=== PATIENT | female | born 1940 | race Asian ===

== ENCOUNTER 2020-01-23 13:52 | Inpatient (IN) | payer OTHER ==
[~2020-01-23] VITALS: Ht 165.1 cm; Wt 58.1 kg
--- NOTE | 2020-01-23 13:55 | NUR ---
BIBRA FROM HOME FOR ALOC, WEAKNESS AND HIGH BLOOD SUGAR. TO ER BED 8, HOOKED TO TOPOGRAPHICAL DRAFTER, BP CUFF AND POX, CHANGED TO HOSP GOWN, WARM BLANKET PROVIDED, PATIENT AAO x 0, BREATHING EVEN AND UNLABORED, NAD NOTED. AWAITING MD DOW.
--- NOTE | 2020-01-23 14:10 | NUR ---
DR PRATHER AT BEDSIDE
[2020-01-23] MEDS ORDERED: CEFTRIAXONE 1GM BAG (ER ONLY) 50 ML IV ONE ×2 (14:21→14:30)
[2020-01-23 14:28] LABS: BASOPHILS # (AUTO) 0.1 /CMM (0.0-0.2); BASOPHILS % (AUTO) 1.1 % (0.0-2.0); EOSINOPHILS % (AUTO) 0.9 % (0.0-6.0); HEMATOCRIT 41 % (33-45); HEMOGLOBIN 13.8 g/dL (11.5-14.8); LYMPHOCYTES # (AUTO) 1.2 /CMM (0.8-4.8); LYMPHOCYTES % (AUTO) 15.9 % (20.0-44.0); MEAN CORPUSCULAR HGB CONC 34 g/dl (31.0-36.0); MEAN CORPUSCULAR VOLUME 98 fL (82-100); MONOCYTES # (AUTO) 0.3 /CMM (0.1-1.30); MONOCYTES % (AUTO) 4.1 % (2.0-12.0); PLATELET COUNT (AUTO) 261 /CMM (150-450); RED BLOOD CELL COUNT(AUTO) 4.14 MIL/uL (4.0-5.2); WHITE BLOOD COUNT (AUTO) 7.7 K/uL (4.3-11.0)
[2020-01-23] MEDS ORDERED: IV NS 0.9% 1,000 ML BAG IV ONE ×2 (14:30→18:00)
[2020-01-23 14:49] LABS: CALCIUM, SERUM 10.5 mg/dL (8.5-10.1); CARBON DIOXIDE 31 mmol/L (21-32); CHLORIDE 94 mmol/L (98-107); POTASSIUM 4.2 mmol/L (3.5-5.1); SODIUM SERUM 133 mmol/L (136-145)
[2020-01-23 14:50] LABS: ALANINE AMINOTRANSFERASE 20 U/L (12-78); ALBUMIN 3.5 g/dL (3.4-5.0); ALKALINE PHOSPHATASE 117 U/L (46-116); ASPARTATE AMINOTRANSFERASE 19 U/L (15-37); BILIRUBIN,DIRECT 0.2 mg/dL (0.0-0.2); BILIRUBIN,TOTAL 0.8 mg/dL (0.2-1.0); CREATININE 0.9 mg/dL (0.6-1.3); UREA NITROGEN, BLOOD 13 mg/dL (7-18)
[2020-01-23 14:53] LABS: GLUCOSE 573 mg/dL (74-106)
[2020-01-23] MEDS ORDERED: OMEP40CA13 PO (15:11)
[2020-01-23] MEDS ORDERED: EMPA10TA PO (15:11)
[2020-01-23] MEDS ORDERED: PRAV40TA3 PO (15:11)
[2020-01-23] MEDS ORDERED: ICOS1CAP PO (15:11)
[2020-01-23] MEDS ORDERED: METF-442 PO (15:11)
[2020-01-23] MEDS ORDERED: CHOL200010 PO (15:11)
[2020-01-23] MEDS ORDERED: ASPI-1420 PO (15:11)
[2020-01-23] MEDS ORDERED: SEMA3TAB PO (15:11)
[2020-01-23] MEDS ORDERED: AMYL1CAP58 PO (15:11)
[2020-01-23] MEDS ORDERED: OLME1TAB46 PO (15:11)
[2020-01-23] MEDS ORDERED: GABA300C PO (15:11)
[2020-01-23] MEDS ORDERED: FLUO20CA42 PO (15:11)
--- NOTE | 2020-01-23 15:19 | NUR ---
PICKED UP BY AUTOMOTIVE MAINTENANCE TECHNICIAN [facility]IA [facility] FOR CT SCAN.
[2020-01-23] MEDS ORDERED: INSULIN REGULAR, HUMAN 100 UNIT/ML 10 ML VIAL IV ONE (15:30)
[2020-01-23] MEDS ORDERED: INSULIN REGULAR, HUMAN 100 UNIT/ML 10 ML VIAL ONE (15:31)
--- NOTE | 2020-01-23 15:50 | NUR ---
URINE SAMPLE COLLECTED VIA STRAIGHT CATHETER, SAMPLE SENT TO LAB.
--- NOTE | 2020-01-23 15:54 | NUR ---
COVID 19 PCR SWAB DONE AND SENT TO LAB.
[2020-01-23] MEDS ORDERED: ACETAMINOPHEN 325 MG TABLET PO PRN (17:00)
[2020-01-23] MEDS ORDERED: MAGNESIUM HYDROXIDE 30 ML UDC PO PRN (17:00)
[2020-01-23] MEDS ORDERED: MAG HYDROX/AL HYDROX/SIMETH 30 ML UDC PO PRN (17:00)
[2020-01-23] MEDS ORDERED: Z GUARD REMEDY 2 OZ OINT TP PRN (17:00)
[2020-01-23] MEDS ORDERED: ONDANSETRON HCL/PF 4 MG/2 ML VIAL IVP PRN (17:00)
[2020-01-23] MEDS ORDERED: DEXTROSE 50%-WATER 50 ML DISP.SYRIN IV PRN (17:00)
[2020-01-23] MEDS ORDERED: CLONIDINE HCL 0.1 MG TABLET PO PRN (17:00)
[2020-01-23] MEDS ORDERED: HYDROCODONE/APAP 5/325MG TABLET PO PRN (17:00)
--- NOTE | 2020-01-23 17:20 | NUR ---
SENT 2ND URINE SAMPLE COLLECTED VIA STRAIGHT CATHETER
--- NOTE | 2020-01-23 17:36 | NUR ---
LAB CALLED LACTIC ACID 4.0 MD AWARE.
[2020-01-23 17:37] LABS: BILIRUBIN,URINE Negative (NEGATIVE); BLOOD, URINE Small Ery/uL (NEGATIVE); COLOR,URINE YELLOW (YELLOW); LEUKOCYTE ESTERASE ,URINE Negative (NEGATIVE); NITRITE, URINE Negative (NEGATIVE); PROTEIN,URINE >=300 mg/dl (NEGATIVE); UGLUCOSE >=1000 mg/dL (NEGATIVE); UROBILINOGEN,URINE 0.2 EU/dL (0.2)
--- NOTE | 2020-01-23 17:39 | NUR ---
MD MADE AWARE OF PATIENT'S BP. NO NEW ORDERS
[2020-01-23] MEDS: BLOOD SUGAR DIAGNOSTIC 1 EACH STRIP VI SCH ×2 (17:40→21:32)
[2020-01-23 17:51] LABS: BACTERIA,URINE Rare /HPF (None Seen); SQUAMOUS EPITHELIAL CELL,UR Few /HPF (None Seen); WBC,URINE NONE SEEN /HPF (0-3)
--- NOTE | 2020-01-23 17:55 | NUR ---
PATIENT CLEANED LINEN CHANGED. HOOKED TO MONITOR. WILL CONTINUE TO MONITOR ACCORDINGLY
[2020-01-23] MEDS: IV NS 0.9% 1,000 ML IV SCH (18:00)
--- NOTE | 2020-01-23 19:24 | NUR ---
ENDORSEMENT GIVEN TO FRANDY GARVEY FOR EKTA
[2020-01-23] MEDS: *INSULIN REGULAR(HUMULIN R)HUM 100 UNIT/ML VIAL SQ PRN (22:33)
[2020-01-23] MEDS ORDERED: CLONIDINE HCL 0.1 MG TABLET ONE (23:20)
--- NOTE | 2020-01-24 01:57 | NUR ---
REC'D NEG COVID RESULTS. AWARE
[2020-01-24] MEDS: IV NS 0.9% 1,000 ML IV SCH ×3 (03:30→23:25)
--- NOTE | 2020-01-24 04:02 | NUR ---
PT REMAINS ASLEEP, PROVIDED WITH PILLOW.
--- NOTE | 2020-01-24 05:55 | NUR ---
PATIENT CHANGED INTO CLEAN GOWN AND SHEETS. PATIENT GIVEN PERICARE.
[2020-01-24 05:59] LABS: BASOPHILS # (AUTO) 0.1 /CMM (0.0-0.2); BASOPHILS % (AUTO) 0.9 % (0.0-2.0); EOSINOPHILS % (AUTO) 1.3 % (0.0-6.0); HEMATOCRIT 34 % (33-45); LYMPHOCYTES # (AUTO) 2.6 /CMM (0.8-4.8); LYMPHOCYTES % (AUTO) 26.3 % (20.0-44.0); MEAN CORPUSCULAR HGB CONC 35 g/dl (31.0-36.0); MEAN CORPUSCULAR VOLUME 98 fL (82-100); MONOCYTES # (AUTO) 0.7 /CMM (0.1-1.30); MONOCYTES % (AUTO) 7.7 % (2.0-12.0); NEUTROPHILS # (AUTO) 6.2 /CMM (1.8-8.9); NEUTROPHILS % (AUTO) 63.8 % (43.0-81.0); PLATELET COUNT (AUTO) 243 /CMM (150-450); RED BLOOD CELL COUNT(AUTO) 3.51 MIL/uL (4.0-5.2); WHITE BLOOD COUNT (AUTO) 9.7 K/uL (4.3-11.0)
[2020-01-24 06:09] LABS: CALCIUM, SERUM 8.4 mg/dL (8.5-10.1); CREATININE 0.7 mg/dL (0.6-1.3); MAGNESIUM 1.5 mg/dL (1.8-2.4); PHOSPHORUS 3.2 mg/dL (2.5-4.9)
--- NOTE | 2020-01-24 07:36 | NUR ---
PATIENT IN BED ASLEEP. HOOKED TO MONITOR. VSS. WILL CONTINUE TO MONITOR ACCORDINGLY. KEPT WARM AND COMFORTABLE.
[2020-01-24] MEDS: BLOOD SUGAR DIAGNOSTIC 1 EACH STRIP VI SCH ×4 (08:02→22:26)
[2020-01-24] MEDS ORDERED: Magnesium 1GM/D5W 100ML PREMIX 100 ML IV SCH (08:30)
[2020-01-24] MEDS: GABAPENTIN 300 MG CAPSULE PO SCH (09:16)
[2020-01-24] MEDS: POTASSIUM CHLORIDE 20 MEQ TAB.PRT.SR PO SCH ×2 (09:16→11:36)
[2020-01-24] MEDS: ASPIRIN EC 81 MG TABLET.DR PO SCH (09:16)
[2020-01-24] MEDS: CHOLECALCIFEROL 1,000 UNIT TABLET (VIT D3) PO SCH (09:17)
[2020-01-24] MEDS: FLUOXETINE HCL 20 MG CAPSULE PO SCH (09:17)
[2020-01-24] MEDS: PANTOPRAZOLE 40 MG TABLET.DR PO SCH (09:17)
[2020-01-24] MEDS: LISINOPRIL (5MG) 5 MG TABLET PO SCH (09:18)
--- NOTE | 2020-01-24 09:38 | NUR ---
PATIENT SERVED BREAKFAST. TOLERATING PO WELL.
--- NOTE | 2020-01-24 10:06 | NUR ---
UPDATED MONGE SIMIN WITH PATIENT STATUS.
[2020-01-24] MEDS: INSULIN REGULAR, HUMAN 100 UNIT/ML 3 ML VIAL SQ PRN (12:59)
--- NOTE | 2020-01-24 13:21 | NUR ---
patient refused eating at lunch time. placed food tray at bedside
--- NOTE | 2020-01-24 15:21 | NUR ---
RAPID INFLUENZA SWAB DONE AND SENT TO LAB
[2020-01-24] MEDS: *INSULIN REGULAR(HUMULIN R)HUM 100 UNIT/ML VIAL SQ PRN (18:00)
--- NOTE | 2020-01-24 18:22 | NUR ---
PATIENT CLEANED, LINEN AND HOSP GOWN CHANGED.
--- NOTE | 2020-01-24 18:52 | NUR ---
patient eating dinner tray. tolerating food well
--- NOTE | 2020-01-24 19:30 | NUR ---
ENDORSEMENT GIVEN TO FRANDY GARVEY FOR EKTA
--- NOTE | 2020-01-24 22:23 | NUR ---
TELE [id number]
--- NOTE | 2020-01-24 22:38 | NUR ---
REPORT GIVEN TO MILEY GARVEY FOR EKTA.
--- NOTE | 2020-01-24 22:53 | NUR ---
PATIENT TAKEN UP TO ASSIGNED ROOM FOR EKTA.
--- NOTE | 2020-01-24 23:45 | NUR ---
TELE/RN OPENING NOTES PATIENT ARRIVED TO UNIT VIA GURNEY BY DUCT LAYER HELPER AND RN FRANDY. PATIENT SUSTAINED NO INJURIES DURING TRANSFER. PATIENT PLACED IN BED WITH NO INJURIES. PATIENT IS STABLE ON ROOM AIR. PATIENT IS ALERT AND ORIENTED X 1-2, [place] SPEAKING. NO SIGNS OF SOB OR RESPIRATORY DISTRESS NOTED. BREATHING IS EVEN AND UNLABORED. PATIENT HAS IV ACCESS ON RIGHT FA #18G. PATIENT SKIN IS INTACT. PATIENT VITAL SIGNS ARE WITHIN NORMAL LIMITS. BELONGING ARE AT PATIENT BED SIDE. PATIENT IS IN NO DISTRESS. PATIENT HAS SITTER IN ROOM. SAFETY MEASURES ARE IN PLACE, BED IS LOCKED AND PLACED IN THE LOW POSITION, SIDE RAILS UP X 2, CALL LIGHT IS WITHIN REACH. WILL CONTINUE TO MONITOR THROUGH OUT SHIFT.
[2020-01-25] VITALS: BP 150/74
[2020-01-25 04:00] VITALS: BP 144/88
[2020-01-25] MEDS: BLOOD SUGAR DIAGNOSTIC 1 EACH STRIP VI SCH ×2 (06:40→12:13)
[2020-01-25] MEDS: INSULIN REGULAR, HUMAN 100 UNIT/ML 3 ML VIAL SQ PRN ×2 (06:41→12:19)
--- NOTE | 2020-01-25 06:50 | NUR ---
TELE/RN CLOSING NOTES PATIENT IS RESTING IN BED, STABLE ON ROOM AIR. PATIENT IS ALERT AND ORIENTED X 1-2, [place]UG[place]E SPEAKING.TELE READING NSR. NO SIGNS OF SOB OR RESPIRATORY DISTRESS NOTED. BREATHING IS EVEN AND UNLABORED. PATIENT HAS IV ACCESS ON RIGHT FA #18G. PATIENT IS IN NO DISTRESS. PATIENT HAS SITTER IN ROOM. ALL NEEDS HAVE BEEN MET DURING SHIFT. SAFETY MEASURES ARE IN PLACE, BED IS LOCKED AND PLACED IN THE LOW POSITION, SIDE RAILS UP X 2, CALL LIGHT IS WITHIN REACH. WILL ENDORSE CARE TO DAY SHIFT NURSE.
[2020-01-25 07:49] LABS: BASOPHILS # (AUTO) 0.1 /CMM (0.0-0.2); BASOPHILS % (AUTO) 1.1 % (0.0-2.0); EOSINOPHILS % (AUTO) 1.9 % (0.0-6.0); HEMATOCRIT 38 % (33-45); HEMOGLOBIN 12.9 g/dL (11.5-14.8); LYMPHOCYTES # (AUTO) 1.7 /CMM (0.8-4.8); LYMPHOCYTES % (AUTO) 24.1 % (20.0-44.0); MEAN CORPUSCULAR HGB CONC 34 g/dl (31.0-36.0); MEAN CORPUSCULAR VOLUME 97 fL (82-100); MONOCYTES # (AUTO) 0.5 /CMM (0.1-1.30); MONOCYTES % (AUTO) 6.4 % (2.0-12.0); NEUTROPHILS # (AUTO) 4.7 /CMM (1.8-8.9); NEUTROPHILS % (AUTO) 66.5 % (43.0-81.0); PLATELET COUNT (AUTO) 250 /CMM (150-450); WHITE BLOOD COUNT (AUTO) 7.1 K/uL (4.3-11.0)
[2020-01-25 08:09] LABS: CALCIUM, SERUM 8.7 mg/dL (8.5-10.1); CARBON DIOXIDE 29 mmol/L (21-32); CHLORIDE 103 mmol/L (98-107); CREATININE 0.5 mg/dL (0.6-1.3); GLUCOSE 170 mg/dL (74-106); MAGNESIUM 1.8 mg/dL (1.8-2.4); POTASSIUM 4.2 mmol/L (3.5-5.1); SODIUM SERUM 140 mmol/L (136-145); UREA NITROGEN, BLOOD 10 mg/dL (7-18)
[2020-01-25] MEDS: ASPIRIN EC 81 MG TABLET.DR PO SCH (09:10)
[2020-01-25 09:11] VITALS: BP 164/86
[2020-01-25] MEDS: LISINOPRIL (5MG) 5 MG TABLET PO SCH (09:11)
[2020-01-25] MEDS: FLUOXETINE HCL 20 MG CAPSULE PO SCH (09:11)
[2020-01-25] MEDS: CHOLECALCIFEROL 1,000 UNIT TABLET (VIT D3) PO SCH (09:11)
[2020-01-25] MEDS: GABAPENTIN 300 MG CAPSULE PO SCH (09:11)
[2020-01-25] MEDS: PANTOPRAZOLE 40 MG TABLET.DR PO SCH (09:11)
[2020-01-25] MEDS ORDERED: IV NS 0.9% 1,000 ML IV PRN (11:00)
--- NOTE | 2020-01-25 14:26 | NUR ---
pt discharged home in stable condition, no pain or discomfort noted, d/c instructions given to pt's , medications returned as well. Heplock removed and all belongings given.
== END 2020-01-25 14:00 | disposition home or self-care (01) | DRG 638 ==
LOC: ER 13:58 → TRANSITION 19:49 → TELE 01-24 22:32
PROVIDERS: ADMIT Internal Medicine; ATTEND Internal Medicine
DX: E11.00 Type 2 diabetes mellitus with hyperosmolarity without nonketotic hyperglycemic-hyperosmolar coma (NKHHC) (principal); E87.2 Acidosis; E86.0 Dehydration; R53.1 Weakness; Z79.84 Long term (current) use of oral hypoglycemic drugs; I10 Essential (primary) hypertension; Z91.14 Patient's other noncompliance with medication regimen
CPT/HCPCS: 36415; 70450-TC; 71045-TC; 80048-TC; 80076-TC; 81001; 82962-TC; 83605-TC; 83735-TC; 84100-TC; 84484-TC; 85025-TC; 85730-TC; 87040-TC; 87081-TC; 87086-TC; G0378; J0696; J1815; J2405; J3475; J7030; U0003